=== PATIENT | female | born 1950 | race Caucasian/White ===

== ENCOUNTER 2017-07-18 07:35 | Emergency (ER) | payer OTHER, MEDICARE ==
[~2017-07-18] VITALS: Ht 167.6 cm; Wt 83.9 kg
[~2017-07-18 07:35] MED LIST: ALUMAG30SU PO; ASPI81EC PO; AZAT50 PO; Alph-E-Mixed400 UNIT PO; Armour Thyroid90 MG PO; BALANCED B-1001 EACH PO; CALCIUM; CALCIUM PO; CEPH500 PO; DHEA PO; ESOM20 PO; ESTR1 PO; FISH OIL 1,2001 EACH PO; HYDACE5 PO; IBUPROFEN; LANS30EC PO; LEVSOD100 PO; LEVSOD150 PO; LORA10ER PO; MOMENI; NAPR500 PO; OMEP20ER; OXYACE5T PO; PROACE100 PO; PROM25 PO; RANI150 PO; SACC250C PO; VITAMIN D35000 UNI1 PO; Vitamin C1000 M1 PO; [UNRECOGNIZED DRUG - OTHER]; [UNRECOGNIZED DRUG - REMARK] INJ
[2017-07-18] MEDS ORDERED: UNKNOWN B/P MED (07:52)
== END 2017-07-18 09:55 | disposition home or self-care (01) ==
LOC: ER 07:35
DX: J32.8 Other chronic sinusitis (principal); K21.9 Gastro-esophageal reflux disease without esophagitis; Z88.8 Allergy status to other drugs, medicaments and biological substances; Z79.899 Other long term (current) drug therapy
CPT/HCPCS: 70450; 96374; 99284; J3010